=== PATIENT | male | born 1975 | race African-American/Black ===

== ENCOUNTER 2017-04-20 05:49 | Day surgery (SDC) | payer BC ==
[2017-04-18 07:48] LABS: HEMATOCRIT 47.1 % (40.0-51.0); HEMOGLOBIN 15.8 g/dL (13.6-17.8)
[2017-04-18 08:06] LABS: A/G RATIO 1.2 (0.7-1.9); ALBUMIN 4.1 G/DL (3.5-5.0); ALKALINE PHOSPHATASE 70 U/L (45-117); BUN (BLOOD UREA NITROGEN) 20 MG/DL (6-23); CALCIUM, SERUM 10.1 MG/DL (8.5-10.4); CHLORIDE, SERUM 102 MMOL/L (96-112); CO2 (CARBON DIOXIDE) 29 MMOL/L (24-34); GFR AFRICAN AMERICAN 97 ML/MIN (>=60); GFR NON AFRICAN AMERICAN 84 ML/MIN (>=60); GLOBULIN 3.5 G/DL (2.5-4.1); GLUCOSE, SERUM 108 MG/DL (60-99); POTASSIUM, SERUM 4.9 MMOL/L (3.5-5.3); SGOT(AST) 73 U/L (5-40); SGPT(ALT) 96 U/L (5-65); SODIUM, SERUM 138 MMOL/L (135-148); TOTAL BILIRUBIN 0.6 MG/DL (0-1.2); TOTAL PROTEIN 7.6 G/DL (6.0-8.5)
[~2017-04-20] VITALS: Ht 180.3 cm; Wt 122.5 kg
--- NOTE | ~2017-04-20 | OP ---
Record Of Operation [facility] [address] [place]. [address] NAME: EBONY OLIVER : 77 STATUS : [facility]#: [id number] AGE: 41 ADM/REG DATE : 04/20/17 MR#: [id number] REPORT SERV DATE: 04/20/17 DICTATED BY: TOMMY YEBOAH DATE: 04/20/17 REPORT STATUS : Draft TRANSCRIBED BY: MODL DATE: 04/20/17 DATE OF PROCEDURE: 04/20/2017 PREOPERATIVE DIAGNOSIS: Incarcerated umbilical hernia. POSTOPERATIVE DIAGNOSIS: Incarcerated umbilical hernia. PROCEDURE: Reduction and mesh patch repair of incarcerated umbilical hernia. DESCRIPTION OF OPERATIVE PROCEDURE: The patient was brought to the operating suite, placed in supine position, and underwent satisfactory general endotracheal anesthesia without incident. The skin of the abdomen was scrubbed, prepped, and draped in usual sterile fashion. 0.5% Marcaine with epinephrine utilized as supplemental local anesthesia at the intended surgical sites. Initially, an infraumbilical incision was performed dissecting through the skin and subcutaneous tissue through a curvilinear incision. The umbilical skin was elevated up off the chronic hernia sac, which was dissected free from the overlying skin, surrounding muscular aponeurotic fascia and fibrofatty tissue. The subcutaneous fat and skin were elevated up off the midline fascia circumferentially. A PVPM bio-component patch was chosen, it was dipped in local anesthesia, rolled up like a taco, and inserted into the peritoneal cavity. It was then withdrawn and impacted on the posterior aspect of the muscular wall. Stay sutures were placed through the medial aspect of the rectus sheath bilaterally full thickness in a "U-stitch" taking an intervening bite of the peritoneal surface of the patch to plicate to the underneath surface of the medial rectus sheath, 0 Ethibond was utilized. Then, the suturing tails of the mesh were trimmed and the cephalad aspect of the muscular aponeurotic fascia was drawn over the caudad aspect, incorporating the suturing tails of the mesh. The redundant mesh was excised. The subcutaneous tissue was irrigated and closed with interrupted 3-0 Vicryl, running subcuticular stitch 4-0 Vicryl for the skin. Dermabond skin adhesive placed. The patient tolerated the procedure well and was returned to PACU in stable condition. At the termination of the procedure, sponge, needle, lap, and instrument counts were correct x3. ESTIMATED BLOOD LOSS: Less than 5-10 mL. Record Of Operation [facility] [address] [place]. [address] NAME: EBONY OLIVRE : 77 STATUS : [facility]#: [id number] AGE: 41 ADM/REG DATE : 04/20/17 MR#: [id number] REPORT SERV DATE: 04/20/17 DICTATED BY: TOMMY YEBOAH DATE: 04/20/17 REPORT STATUS : Draft TRANSCRIBED BY: KEKE DATE: 04/20/17 WR/KEKE Tommy Yeboah M.D. / [id number] CC: Tommy Yeboah M.D.
[~2017-04-20 05:49] MED LIST: PRE WORKOUT PO
== END 2017-04-20 13:29 | disposition home or self-care (01) ==
LOC: SDC 05:49
PROVIDERS: Specialist
PROC: 8E0W0CZ Robotic Assisted Procedure of Trunk Region, Open Approach (ICD-10-PCS; 2017-04-20)
PROC: 0WUF0JZ Supplement Abdominal Wall with Synthetic Substitute, Open Approach (ICD-10-PCS; principal; 2017-04-20 07:45)
DX: K42.0 Umbilical hernia with obstruction, without gangrene (principal); E66.9 Obesity, unspecified; Z68.37 Body mass index [BMI] 37.0-37.9, adult
CPT/HCPCS: 80053; 85014; 85018; 87641; 88302; A9270-GY; C1781; J0690; J2250; J2405; J2710; J3010